=== PATIENT | female | born 1995 | race Caucasian/White ===

== ENCOUNTER 2025-02-07 00:13 | Inpatient (IN) | payer OTHER ==
[2025-02-07] MEDS ORDERED: Sodium Chloride 0.9% 2.5 ML Syringe FLUSH PRN (01:24)
[2025-02-07] MEDS ORDERED: Carboprost Tromethamine 250 MCG/1 mL Vial IM PRN (01:24)
[2025-02-07] MEDS ORDERED: Butorphanol 1 MG/ML SDV IVPUSH PRN (01:24)
[2025-02-07] MEDS ORDERED: Ondansetron 4 MG Tab.DIS PO PRN (01:24)
[2025-02-07] MEDS ORDERED: Sodium Chloride 0.9% 10 ML Syringe FLUSH PRN (01:24)
[2025-02-07] MEDS ORDERED: Water For Irrigation,Sterile 1,000 ML Container IRR PRN (01:24)
[2025-02-07] MEDS ORDERED: Oxytocin/0.9 % Sodium Chloride 30 UNIT/500 ML BAG IV SCH (01:30)
[2025-02-07 02:05] LABS: MEAN PLATELET VOLUME 12.3 fL (9.4-12.3); NRBC ABSOLUTE 0.00 K/uL (0.00-0.02); NRBC PERCENT 0.0 /100WBC (0.0-0.2); PLATELET COUNT,PLT 142 K/uL (150-400); RED BLOOD CELL COUNT 4.29 M/uL (4.10-5.30); WHITE BLOOD CELL COUNT,WBC 10.59 K/uL (3.9-11.3)
[2025-02-07] MEDS: Lactated Ringers 1,000 ML IV SCH (06:27)
[2025-02-07] MEDS: Oxytocin/0.9 % Sodium Chloride 30 UNIT/500 ML BAG IV SCH (10:00)
[2025-02-07] MEDS: Ropivacaine HCl/PF 400 MG in Premix Bag 1 BAG EPIDUR SCH (17:15)
[2025-02-07] MEDS ORDERED: ePHEDrine 50 MG/ML SDV IVPUSH PRN (17:23)
[2025-02-07] MEDS ORDERED: dexmedeTOMIDine HCl 200 MCG/2 ML SDV EPIDUR SCH (17:30)
[2025-02-07] MEDS ORDERED: Ondansetron 4 MG/2 ML SDV IVPUSH PRN (19:45)
[2025-02-07 20:05] LABS: PH,UMBILICAL ARTERIAL 7.24 (7.18-7.38); PH,UMBILICAL VENOUS 7.35 (7.25-7.45)
[2025-02-07] MEDS: Witch Hazel Medicated Pads 40/Jar TOP PRN (20:32)
[2025-02-07] MEDS: Lanolin 100% Cream 7 GM Tube TOP PRN (20:33)
[2025-02-07] MEDS: Benzocaine/Menthol 20%-0.5% Spray 78 GM Cannister TOP PRN (20:33)
== END 2025-02-08 22:20 | disposition home or self-care (01) | DRG 807 ==
LOC: MW.OB 00:13 → OBSVTOIN 19:20 → MW.OB 23:30
PROVIDERS: ADMIT Obstetrics & Gynecology; ATTEND Obstetrics & Gynecology
PROC: 10E0XZZ Delivery of Products of Conception, External Approach (ICD-10-PCS; principal; 2025-02-07)
PROC: 0HQ9XZZ Repair Perineum Skin, External Approach (ICD-10-PCS; 2025-02-07)
PROC: 3E0R3BZ Introduction of Anesthetic Agent into Spinal Canal, Percutaneous Approach (ICD-10-PCS; 2025-02-07)
PROC: 3E033VJ Introduction of Other Hormone into Peripheral Vein, Percutaneous Approach (ICD-10-PCS; 2025-02-07)
PROC: 10907ZC Drainage of Amniotic Fluid, Therapeutic from Products of Conception, Via Natural or Artificial Opening (ICD-10-PCS; 2025-02-07)
PROC: 00HU33Z Insertion of Infusion Device into Spinal Canal, Percutaneous Approach (ICD-10-PCS; 2025-02-07)
PROC: 3E0DXGC Introduction of Other Therapeutic Substance into Mouth and Pharynx, External Approach (ICD-10-PCS; 2025-02-07)
DX: O99.02 Anemia complicating childbirth (principal); Z37.0 Single live birth; Z3A.39 39 weeks gestation of pregnancy; O43.893 Other placental disorders, third trimester; O70.0 First degree perineal laceration during delivery
CPT/HCPCS: 36415; 51702; 59025; 59409; 76805; 76805-26; 82803; 85014; 85018; 85027; 86592; 86850; 86900; 86901; A9270-GY; J2003; J2210; J2590; J2795; J7120